=== PATIENT | male | born 1960 | race African-American/Black ===

== ENCOUNTER 2021-10-23 12:38 | Emergency (ER) | payer OTHER, MEDICAID ==
[~2021-10-23] VITALS: Ht 185.4 cm; Wt 81.2 kg
[2021-10-23 12:43] VITALS: BP 132/72
--- NOTE | 2021-10-23 13:21 | NUR ---
DR MONET AT BEDSIDE EXAMINING PT
--- NOTE | 2021-10-23 13:27 | NUR ---
LAB AT BEDSIDE
--- NOTE | 2021-10-23 13:35 | NUR ---
RAY SWAB COLLECTED AND HANDED TO BRENDAN ARANA
--- NOTE | 2021-10-23 13:41 | NUR ---
61/M BIB WITH C/O NAUSEA AND VOMITING SINCE 8AM AND ABD PAIN. REPORTS 13 EPISODES OF VOMITING, STATES HE NOTICED BRIGHT RED BLOOD IN HIS VOMIT. DENIES CP, SOB, FEVERS. PT STATES 5/10 SHARP PAIN, TENDER TO TOUCH. MEDHX: DENIES NKA
[2021-10-23 13:47] LABS: BASOPHILS % (AUTO) 0.6 % (0.0-2.0); EOSINOPHILS # (AUTO) 0.1 K/uL (0-0.4); EOSINOPHILS % (AUTO) 1.4 % (0.0-4.0); HEMATOCRIT 42.7 % (36-52); HEMOGLOBIN 14.2 g/dL (12.0-18.0); LYMPHOCYTES # (AUTO) 1.7 K/uL (2.0-11.5); LYMPHOCYTES % (AUTO) 23.4 % (20.5-51.1); MEAN CORPUSCULAR HEMOGLOBIN 29 pg (27-31); MEAN CORPUSCULAR HGB CONC 33 g/dL (33-37); MEAN CORPUSCULAR VOLUME 86.4 fL (80-94); MONOCYTES # (AUTO) 0.7 K/uL (0.8-1.0); NEUTROPHILS # (AUTO) 4.8 K/uL (1.8-7.7); NEUTROPHILS % (AUTO) 65.6 % (42.2-75.2); PLATELET COUNT (AUTO) 286 K/uL (140-450); RED BLOOD CELL COUNT(AUTO) 4.94 MIL/uL (4.20-6.10); RED CELL DISTRIBUTION WIDTH 13.7 % (11.6-13.7); WHITE BLOOD COUNT (AUTO) 7.3 K/uL (4.8-10.8)
--- NOTE | 2021-10-23 13:50 | NUR ---
PT TAKEN TO CT SCAN VIA W/C
[2021-10-23 14:01] LABS: PROTHROMBIN TIME 9.5 secs (10.8-13.4)
[2021-10-23 14:05] LABS: ALBUMIN 4.1 g/dL (3.4-5.0); ANION GAP 13.5 (8-16); CARBON DIOXIDE 31.3 mmol/L (21-32); CREATININE 1.3 mg/dL (0.6-1.3); POTASSIUM 3.8 mmol/L (3.5-5.1); TOTAL BILIRUBIN 0.4 mg/dL (0.0-1.0)
[2021-10-23] MEDS: NACL 0.9% 1,000 ML IV ONE (14:24)
[2021-10-23] MEDS: ONDANSETRON 4 MG/2 ML VIAL IVP ONE (14:24)
[2021-10-23] MEDS: MORPHINE SULFATE 4 MG/ML SYR IVP ONE (14:32)
--- NOTE | 2021-10-23 15:07 | NUR ---
Patient appears to be resting comfortably in bed. Vital Signs within normal limits. Respirations even and unlabored. Pt's at bedside
--- NOTE | 2021-10-23 15:36 | NUR ---
DR SANTORO AT BEDSIDE EXAMINING PT
[2021-10-23] MEDS ORDERED: HALOPERIDOL IM 5 MG/ML VIAL IM ONE (15:40)
[2021-10-23] MEDS: HALOPERIDOL IM 5 MG/ML VIAL IVP ONE (15:49)
--- NOTE | 2021-10-23 16:53 | NUR ---
XRAY AT BEDSIDE
[2021-10-23] MEDS ORDERED: ONDA-188 PO (17:19)
[2021-10-23 17:43] VITALS: BP 147/75
== END 2021-10-23 17:43 | disposition home or self-care (01) ==
LOC: MED 12:38
DX: R11.14 Bilious vomiting (principal); R06.6 Hiccough; R10.84 Generalized abdominal pain; Z20.822 Contact with and (suspected) exposure to COVID-19
CPT/HCPCS: 36415; 74176; 80053; 83690; 83930; 85025; 85610; 86886; 86900; 86901; 87426; 96361; 96374; 96375; 99284; J1630; J2270; J2405; J7030